=== PATIENT | female | born 1965 | race Caucasian/White ===

== ENCOUNTER 2025-06-05 15:09 | Outpatient (AMB) | payer OTHER, SELFPAY ==
--- NOTE | 2025-06-05 15:17 | A.OFFPC_ITS ---
Vital Signs 06/05/25 15:18 Height 5 ft 5.75 in Weight 163 lb 6 oz BMI 26.6 BP 120/76 Blood Pressure Location Rt brachial Position Sitting Respiration 16 Pulse 68 Pulse Source Pulse Oximeter Temp 97.1 F Temp Source Temporal Artery Scan Pulse Oximetry (%) 97 Oxygen Delivery Method Room Air Intake Visit Reasons: New Patient carl Krueger care and physical Email Engineer Required: No Accompanied by: Self / Same As Patient Allergies No Known Allergies Allergy (Verified 06/05/25 15:21) Medication List - Last Reconciled 06/05/25 by Oliva Lopez MD gabapentin 300 mg PO DAILY multivitamin 1 tab PO DAILY Tobacco use date assessed: 06/05/25 Dental Screening Dental Screen Date: 06/05/25 Did you have a dental visit in the last 12 months?: Yes Did you have a dental problem in the last 6 months where you did not have access to dental care?: No Was dental information given to patient?: Patient has dentist HPI HPI Comments History of Present Illness Details The patient is a 59 year old female presenting for a physical and to re- establish care. Sciatica and Degenerative Disc Disease: The patient had a severe episode of sciatica in November, for which an initial trial of Advil and Tylenol was ineffective. The patient was evaluated at an orthopedic clinic [facility] in [place] where she had xrays done that confirmed degenerative disc disease. Treatment included a 10-day prednisone taper, which resolved the inflammation, followed by six physical therapy sessions at [facility]. The patient reports that the sciatica has not recurred since completing treatment. Osteoporosis Screening: The patient is postmenopausal and has significant family history of osteoporosis, affecting the patient's mother and maternal uncle. Planned Dental Procedure: The patient is scheduled for an extraction of tooth #14, to be followed by a bone graft and implant. The patient reports significant fear and PTSD from a previous negative dental experience and will receive sedation including an anxiolytic and nitrous oxide for the procedure. Hot flashes- on gabapentin Health Maintenance: The patient's last Pap smear was in 2020 and the patient is aware she is due for health claims examiner follow up. A recent mammogram was normal. The patient received both the flu and COVID-19 vaccinations in April and subsequently had a mild case of COVID- 19 approximately 2.5 weeks ago, with symptoms of congestion, rhinorrhea, and a slight dry cough, but no fever. Social History: - The patient is engaged and recently mo nina to [employer]. 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 [facility] Medical History (Updated 06/05/25 @ 15:43 by Oliva Lopez MD) Routine medical exam Hot flashes Surgical History (Updated 06/05/25 @ 16:50 by Oliva Lpoez MD) History of colonoscopy Social History Housing: House Patient Tobacco Use Status: Never used Tobacco e-Cigarette/Vaping Use: Never Used service: No Current occupational status: employed Current occupation: Teacher Questionnaire PHQ-9 Over the last 2 weeks, how often have you been bothered by any of the following problems? 1. Little interest or pleasure in doing things: not at all 2. Feeling down, depressed, or hopeless: not at all 3. Trouble falling or staying asleep, or sleeping too much: not at all 4. Feeling tired or having little energy: not at all 5. Poor appetite or overeating: not at all 6. Feeling bad about yourself - or that you are a failure or have let yourself or your family down: not at all 7. Trouble concentrating on things, such as reading the newspaper or watching television: not at all 8. Moving or speaking so slowly that other people could have noticed. Or the opposite - being so fidgety or restless that you have been moving around a lot more than usual: not at all 9. Thoughts that you would be better off or of hurting yourself in some way: not at all Total score: 0 Depression Screening Interpretation: Negative Depression Screening Done: Yes 31217 - PHQ-9 Billing: Yes Source: Developed by Drs. Santosh Jennings, Brit Scanlon, Wolf Elkins and colleagues, with an educational charlee from [employer]. Thrive Questionnaire I am a: Patient What is your living situation today?: I have a steady place to live Within the past 12 months, did the food you bought not last and you didn't have the money to get more?: Never true Within the past 12 months, did you worry whether your food would run out before you got money to buy more?: Never true Do you have trouble paying for medicines?: No Do you have trouble getting transportation to medical appointments?: No Do you have trouble paying your heating and electricity bill?: No Do you have trouble taking care of your child, family member or friend?: No Do you have trouble with day-to-day activities such as bathing, preparing meals, shopping, managing finances, etc.?: No Are you currently unemployed and looking for a job?: No Are you interested in more education?: I choose not to answer this question Please select the resources that you would like help with: None Currently or been in a relationship where the following occur: No concerns reported THRIVE Score: 0 AUDIT C Alcohol Use Questionnaire (AUDIT-C) 1. How often do you have a drink containing alcohol?: 2-4 times a month 2. How many drinks containing alcohol do you have on a typical day when you are drinking?: 1 or 2 3. How often do you have six or more drinks on one occasion?: Never Total Score: 2 SALVADOR-7 AMB Questionnaire SALVADOR-7 Feeling nervous, anxious, or on edge: 1 = Several days Not being able to stop or control worryin = Not at all Worrying too much about different things: 0 = Not at all Trouble relaxin = Not at all Being so restless that it is hard to sit still: 0 = Not at all Becoming easily annoyed or irritable: 1 = Several days Feeling afraid as if something awful might happen: 0 = Not at all Total SALVADOR-7 score (0-4 normal; 5-9 mild; 10-14 moderate; 15-21 severe): 2 Source: Developed by Drs. Santosh Jennings, Brit Scanlon, Wolf Elkins and colleagues, with an educational charlee from [employer]. Review of Systems Narrative Review of Systems - Constitutional: per hpi - Respiratory: per hpi - Gastrointestinal: some nausea/vomiting after taking MVI - Musculoskeletal: Reports chronic peripheral edema. - Psychiatric: per hpi Physical exam (Primary Care) Vital Signs: Last Vital Signs Temp 97.1 F 06/05/25 15:18 Pulse 68 06/05/25 15:18 Resp 16 06/05/25 15:18 BP 120/76 06/05/25 15:18 Pulse Ox 97 06/05/25 15:18 Oxygen Delivery Method Room Air 06/05/25 15:18 BMI result Body Mass Index 26.6 Tobacco/Smoking Status: Tobacco use Status Tobacco use date assessed 06/05/25 06/05/25 15:25 Patient Tobacco Use Status Never used Tobacco 06/05/25 15:25 e-Cigarette/Vaping Use Never Used 06/05/25 15:25 PHQ-9: PHQ-9 Score PHQ-9: Total score 0 06/05/25 15:25 Depression Screening Interpretation: Negative Currently or been in a relationship where the following occur: No concerns reported Narrative Physical Exam - HEENT: Bilateral ears clear. Normal tympanic membranes bilaterally - Oropharynx: No redness. - Neck: No cervical lymph node enlargement. - Lungs: Clear to auscultation bilaterally, no wheezing. - Cardiovascular: Normal heart sounds with a soft murmur - Abdomen: Soft, non-distended, non-tender, with normoactive bowel sounds. - Extremities: baseline trace edema bilateral lower extremities. Coding Level of Care Code Est Pt Prev Care 40-64y(87720) Complex visit Add On G2211 Diagnoses Routine medical exam Z00.00 Hot flashes R23.2 Additional Codes PHQ-9 - 41909 - PHQ-9 Billing: Yes ([id number]) Assessment & Plan Assessment & Plan (1) Routine medical exam: Code(s): Z00.00 - Encounter for general adult medical examination without abnormal findings Category: Medical (2) Hot flashes: Code(s): R23.2 - [place] Category: Medical Plan Assessment and Plan 1. Annual Health Maintenance The patient is a 59-year-old individual presenting to re-establish care and for a physical. Plan includes ordering fasting labs (lipid panel, CMP, TSH), a bone density scan, and advising the patient to schedule an overdue health claims examiner evaluation. We will request medical records from [facility] and [facility] 2. Osteoporosis Screening Due to the patient's postmenopausal state and strong family history of osteoporosis (mother and uncle), a screening bone density (DEXA) scanwill be ordered. 3. History of Sciatica and Degenerative Disc Disease The patient reports a history of severe sciatica in November, which has since resolved following treatment with a prednisone taper and physical therapy. The condition is currently stable with no further intervention planned. 4. Peripheral Edema The patient reports chronic swelling in the lower extremities. The patient currently uses elevation at home. Plan is to recommend trail of 15 mmHg compression stockings, advising a wide-calf size for proper fit and comfort. 5. Dental Anxiety and Planned Procedure The patient has significant anxiety and PTSD related to dental work and has a planned tooth extraction. The sedation plan was reviewed and appears appropriate. 6. Medication Intolerance The patient reports nausea and vomiting with standard tablet multivitamins. Plan is to switch to a gummy multivitamin formulation, which may be better tolerated. Plan - An order will be placed for a bone density scan. - Orders will be placed for fasting labs, including cholesterol panel, CMP, and TSH. - The patient was advised to schedule a health claims examiner eval as it is overdue. - Recommended switching to a gummy women's multivitamin - Advised the use of 15 mmHg compression socks (wide calf) for peripheral edema. - The patient will schedule a follow-up physical for next year. Discussion Notes I had a detailed discussion with the patient regarding the plan for health maintenance and managing current concerns. Patient Instructions - Our office has ordered a bone density scan for you; our scheduling team will call you to make an appointment. - Please go to a lab for blood work; you must fast (no food or drink, except water) for 8-10 hours before the test. - For swelling in your legs, you can wear compression socks with a pressure of 15 mmHg. Orders: Orders Comprehensive Met. Panel Today R23.2 - [place], Z00.00 - Encounter for general adult medical examination without abnormal findings XR DEXA axial skeleton Today Z78.0 - Asymptomatic menopausal state, Z82.62 - Family history of osteoporosis TSH reflex Free T4 Today R23.2 - [place], Z00.00 - Encounter for general adult medical examination without abnormal findings Complete Blood Count Auto Diff Today R23.2 - [place], Z00.00 - Encounter for general adult medical examination without abnormal findings Lipid Panel Today R23.2 - [place], Z00.00 - Encounter for general adult medical examination without abnormal findings
[2025-06-05 15:18] VITALS: BP 120/76; PULSE 68; RESP 16; TEMP 36.2; O2SAT 97; BMI 26.6
--- OUTSIDE RECORDS SUMMARY | 2025-06-05 16:55 | XMS_ITS | Clinical Summary ---
Author Organization [facility] Address [address] [place] [address] Care Team Providers Care Industrial Roofer Helper Name Role Phone Unavailable Primary Care Provider Unavailabl e Immunizations Name Administration Dates Next Due Covid-19 (Pfizer) Dilution Required 08/29/2020 Social History Tobacco Use Types Packs/Day Years Used Date Smoking Tobacco: Never Assessed Sex and Gender Information Value Date Recorded Sex Assigned at Female 08/29/2020 7:34 AM EST Gender Identity Not on file Sexual Orientation Not on file Plan of Treatment Health Maintenance Due Date Last Done Comments Hepatitis B Vaccines (1 of 3 - 3-dose series) 1967 Hepatitis C Screening 1967 Depression Screening 1979 Preventative Health Evaluation 1985 DTap / Tdap / Td (1 - Tdap) 1986 Cervical Cancer Screening (P ap Smear) 1988 Colon Cancer Screening (Colonoscopy) 2012 Breast Cancer Screening (Mammogram) 2017 Shingrix-Zoster Vaccine (1 of 2) 2017 COVID-19 Vaccine (2 - 2024-2 6 season) 2025 08/29/2020 Influenza Vaccine (#1) 2025 Pneumococcal Vaccine Aged Out No long er eligible based on patient's age to complete this topic RSV Ped < 20 months Aged Out No longe r eligible based on patient's age to complete this topic
== END 2025-06-05 15:59 | disposition home or self-care (01) ==
LOC: HO.HMCHD 15:10
PROVIDERS: PCP Internal Medicine; Visit Provider Internal Medicine
DX: Z00.00 Encounter for general adult medical examination without abnormal findings (principal); R23.2 Flushing

== ENCOUNTER → 2025-06-05 15:09 | Outpatient (BNVA) | payer OTHER, SELFPAY | PROVIDERS: PCP Internal Medicine; Visit Provider Internal Medicine | DX: Z00.01 Encounter for general adult medical examination with abnormal findings (principal); R23.2 Flushing | CPT/HCPCS: 96127 ==

== ENCOUNTER 2025-06-09 10:56 | Outpatient (REF) | payer OTHER, SELFPAY ==
--- OUTSIDE RECORDS SUMMARY | 2025-06-09 10:59 | XMS_ITS | Clinical Summary ---
Author Organization [facility] Prior to 12/02/24 Address [address] [place] [address] Care Team Providers Care Senior Sustainability Consultant Name Role Phone Unavailable Primary Care Provider [...]
[2025-06-09 13:47] LABS: MANUAL DIFF FLAG NO
[2025-06-09 13:51] LABS: Hematocrit 40.0 % (37.0-47.0); Hemoglobin 13.0 g/dl (12.0-16.0); Imm Gran Abs Auto 0.01 X10*3/uL (0.00-0.03); Imm Gran Pct Auto 0.2 % (0.0-0.4); Lymphocytes Absolute Auto 2.3 X10*3/uL (1.2-4.9); Mean Corpuscular HGB Conc 32.5 g/dl (31.0-35.0); Mean Corpuscular Hemoglobin 30.7 pg (27.0-33.0); Mean Corpuscular Volume 94.3 fL (80.0-98.0); NRBC Abs Auto 0.000 X10*3/uL (0.0-0.012); NRBC Pct Auto 0.0 /100WBC (0.0-0.2); Platelet Count 242 X10*3/uL (160-400); Red Blood Count 4.24 X10*6/uL (4.20-5.50); White Blood Count 5.1 X10*3/uL (4.8-10.8)
[2025-06-09 14:22] LABS: Anion Gap 11 (12-20)
[2025-06-09 14:29] LABS: Alanine Aminotransferase 16 U/L (0-31); Albumin Level 4.7 g/dL (3.5-5.0); Alkaline Phosphatase 63 U/L (39-117); Aspartate Amino Transferase 23 U/L (5-31); Blood Urea Nitrogen 10 mg/dL (9-16); Calcium 9.6 mg/dL (8.4-10.2); Carbon Dioxide 27 mmol/L (22-29); Chloride 108 mmol/L (96-108); Cholesterol 205 mg/dL (<200); Estimated Glomerular Filt Rate > 60; HDL Cholesterol 93 mg/dL (>40); Potassium 3.9 mmol/L (3.3-5.1); Sodium 142 mmol/L (135-145); Total Protein 7.2 g/dL (6.5-8.0); Triglycerides 77 mg/dL (<150)
[2025-06-09 15:10] LABS: Free T4 (Free Thyroxine) 0.98 ng/dL (0.71-1.85)
== END 2025-06-09 10:57 | disposition home or self-care (01) ==
LOC: HO.HMGCLDS 10:56
PROVIDERS: PCP Internal Medicine; Visit Provider Internal Medicine
DX: Z00.00 Encounter for general adult medical examination without abnormal findings (principal); R23.2 Flushing; Z13.29 Encounter for screening for other suspected endocrine disorder; Z13.6 Encounter for screening for cardiovascular disorders
CPT/HCPCS: 36415; 80053; 80061; 84439; 84443; 85025

== ENCOUNTER 2025-06-16 11:06 | Outpatient (REF) | payer OTHER, SELFPAY ==
--- OUTSIDE RECORDS SUMMARY | 2025-06-16 11:09 | XMS_ITS | Clinical Summary ---
Author Organization [facility] Prior to 12/02/24 Address [address] [place] [address] Care Team Providers Care Warp Splitter Name Role Phone Unavailable Primary Care Provider [...]
== END 2025-06-16 11:07 | disposition home or self-care (01) ==
LOC: HO.HMGCLDS 11:06
PROVIDERS: PCP Internal Medicine; Visit Provider Internal Medicine
DX: E05.90 Thyrotoxicosis, unspecified without thyrotoxic crisis or storm (principal)
CPT/HCPCS: 36415; 83520; 86800

== ENCOUNTER 2025-06-25 08:14 | Outpatient (REF) | payer OTHER, SELFPAY ==
--- NOTE | ~2025-06-25 | MM_ITS ---
EXAMINATION: DXA BONE DENSITY AXIAL HISTORY: Z78.0 - Asymptomatic menopausal state TECHNIQUE: BuddyBounce Dual energy absorptiometry (DEXA) of the lumbar spine, total left hip, and femoral neck was performed. COMPARISON: There are no prior studies for comparison. FINDINGS: The bone mineral density of the lumbar spine is 1.212 g/cm2, corresponding to a T-score of 0.3, and a Z-score of 1.1. This is indicative of normal bone mineral density. The bone mineral density of the left total hip is 0.908 g/cm2, corresponding to a T-score of -0.8, and a Z-score of -0.1. This is indicative of normal bone mineral density. The bone mineral density of the left femoral neck is 0.822 g/cm2, corresponding to a T-score of -1.6, and a Z-score of -0.5. This is indicative of osteopenia. FRACTURE RISK: The FRAX index suggests a risk of major osteoporotic fracture of 7.7%, and of hip fracture 0.7%. MM/XR DEXA axial skeleton IMPRESSION: Based on bone mineral density, and according to World Health Organization (WHO) criteria, the diagnosis is consistent with osteopenia. Statistically, 68% of repeat scans fall within 1 SD (+/- 0.010 g/cm2 for AP spine L1-L4) and 1 SD (+/- 0.012 g/cm2 for femur total) FRAX is a trademark of the [employer] [place] for Metabolic Bone Disease, a World Health Organization (WHO) Collaborating Center. Electronically signed by: Santosh Mcgill MD 06/25/2025 08:53 AM [facility] [place] [facility] [place]
--- OUTSIDE RECORDS SUMMARY | 2025-06-25 08:18 | XMS_ITS | Clinical Summary ---
Author Organization [facility] Prior to 12/02/24 Address [address] [place] [address] Care Team Providers Care Supervisor Name Role Phone Unavailable Primary Care Provider [...]
== END 2025-06-25 08:15 ==
LOC: HO.MAMMO 08:14
PROVIDERS: PCP Internal Medicine; Visit Provider Internal Medicine
DX: Z78.0 Asymptomatic menopausal state (principal); Z82.62 Family history of osteoporosis
CPT/HCPCS: 77080

== ENCOUNTER → 2025-06-25 08:15 | Outpatient (BNV) | payer OTHER, SELFPAY | PROVIDERS: PCP Internal Medicine; Visit Provider Radiology Diagnostic Radiology | DX: E28.39 Other primary ovarian failure (principal) | CPT/HCPCS: 77080 ==